=== PATIENT | female | born 2000 | race Caucasian/White ===

== ENCOUNTER 2020-09-17 22:23 | Emergency (ER) | payer MEDICAID ==
[~2020-09-17] VITALS: Ht 170.2 cm; Wt 134.5 kg
[2020-09-17 23:17] LABS: BASOPHILS % (AUTO) 1 % (0-1); EOSINOPHILS % (AUTO) 1 % (1-7); LYMPHOCYTES % (AUTO) 24 % (22-44); MEAN CORPUSCULAR HEMOGLOBIN 23.6 pg (27.0-34.8); MEAN CORPUSCULAR HGB CONC 32.6 g/dL (32.4-35.8); MEAN PLATELET VOLUME 7.3 fL (7.4-10.4); MONOCYTES % (AUTO) 5 % (2-9); NEUTROPHILS % (AUTO) 69 % (42-75); PLATELET COUNT 448 x10^3/uL (130-400); RED BLOOD COUNT 5.68 x10^6/uL (3.82-5.3); RED CELL DISTRIBUTION WIDTH 16.5 % (9.6-15.2)
[2020-09-17 23:21] LABS: MD NO
[2020-09-17 23:28] LABS: ALANINE AMINOTRANSFERASE 44 U/L (12-78); ALBUMIN 3.9 g/dL (3.4-5.0); ANION GAP 6 mmol/L (5-15); CALCIUM 8.9 mg/dL (8.5-10.1); CHLORIDE 105 mmol/L (98-107); CREATININE 0.79 mg/dL (0.55-1.02)
[2020-09-17] MEDS ORDERED: ONDANSETRON ODT 4 MG PO ONE (23:30)
[2020-09-17 23:32] LABS: ALKALINE PHOSPHATASE 85 U/L (45-117); BILIRUBIN,TOTAL 0.4 mg/dL (0.2-1.0); TOTAL PROTEIN 8.7 g/dL (6.4-8.2)
[2020-09-17] MEDS ORDERED: ONDANSETRON ODT 4 MG ONE (23:34)
--- NOTE | 2020-09-17 23:46 | NUR ---
PT HERE FOR N/V AND DIZZINESS. PT MEDICATED FOR NAUSEA. WILL PO CHALLANGE AT APPROX 0000. VSS. PT IN NAD. CALL LIGHT IN REACH
[2020-09-18 00:02] VITALS: BP 123/73
[2020-09-18] MEDS ORDERED: PROMETHAZINE 25 MG/ML, 1ML IM ONE (00:30)
[2020-09-18] MEDS ORDERED: PROMETHAZINE 25 MG/ML, 1ML ONE (00:33)
--- NOTE | 2020-09-18 00:41 | NUR ---
PT STILL NAUSEOUS. PT REMEDICATED. VSS. CALL LIGHT IN REACH
--- NOTE | 2020-09-18 01:04 | NUR ---
PT TOLERATING PO FLUIDS.
--- NOTE | 2020-09-18 01:17 | NUR ---
Patient given discharge instructions and they have confirmed that they understand the instructions. Patient ambulatory with steady gait.
== END 2020-09-18 01:18 | disposition home or self-care (01) ==
LOC: ED 23:33
DX: A09 Infectious gastroenteritis and colitis, unspecified (principal); R55 Syncope and collapse; R11.2 Nausea with vomiting, unspecified; R94.31 Abnormal electrocardiogram [ECG] [EKG]
CPT/HCPCS: 36415; 80053; 84703; 85025; 93005; 96372; 99284; J2550; Q0162